=== PATIENT | male | born 1990 | race Caucasian/White ===

== ENCOUNTER 2018-10-25 11:51 | Emergency (ER) | payer SELFPAY ==
[2018-10-25 12:16] VITALS: BP 126/85; PULSE 69; RESP 18; BMI 29.0
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
[2018-10-25 14:09] VITALS: TEMP 97.8; O2SAT 98
== END 2018-10-25 14:09 | disposition home or self-care (01) ==
LOC: H.ER 11:51
DX: M54.5 Low back pain (principal); G89.29 Other chronic pain
CPT/HCPCS: 96372; 99282; J1885

== ENCOUNTER 2018-10-25 14:51 | Inpatient (IN) | payer OTHER, MEDICAID ==
[2018-10-25 14:51] VITALS: BMI 29.0
[2018-10-25 17:09] LABS: BASO % 0.4 % (0.0-2.0); EOS # 0.2 K/uL (0.0-0.7); EOS % 2.1 % (0.0-4.0); HEMOGLOBIN 13.2 g/dL (12.0-18.0); LYMPH # 3.3 K/uL (1.0-4.3); LYMPH % 40.6 % (20.0-40.0); MEAN CELL VOLUME 78.7 fl (80.0-94.0); MEAN CORPUSCULAR HEMOGLOBIN 25.2 pg (27.0-31.0); MEAN PLATELET VOLUME 9.9 fl (7.2-11.7); MONO # 0.5 K/uL (0.0-0.8); MONO % 6.7 % (0.0-10.0); NEUT # 4.1 K/uL (1.8-7.0); NEUT % 50.2 % (50.0-75.0); NRBC % 0.3 % (0.0-0.0); RBC 5.22 Mil/uL (4.40-5.90); RED CELL DISTRIBUTION WIDTH 14.2 % (11.5-14.5); WHITE BLOOD COUNT 8.1 K/uL (4.8-10.8)
[2018-10-25 17:23] LABS: ALB/GLOB RATIO 1.3 (1.0-2.1); ALBUMIN 4.6 g/dL (3.5-5.0); ALT/SGPT 43 U/L (21-72); AST/SGOT 47 U/L (17-59); BLOOD UREA NITROGEN 15 mg/dl (9-20); CALCIUM 9.7 mg/dL (8.4-10.2); GFR NON-AFRICAN AMERICAN > 60
--- NOTE | 2018-10-25 17:33 | RAD ---
HISTORY: pre op COMPARISON: None available. TECHNIQUE: Chest PA and lateral FINDINGS: Examination limited by habitus and hypoinflation. LUNGS: No focal consolidation. Please note that chest x-ray has limited sensitivity for the detection of pulmonary masses. PLEURA: No significant pleural effusion identified. No definite pneumothorax . CARDIOVASCULAR: Heart size appears within normal limits. No atherosclerotic calcification present. OSSEOUS STRUCTURES: No acute osseous abnormality identified. VISUALIZED UPPER ABDOMEN: Unremarkable. OTHER FINDINGS: None. IMPRESSION: No focal consolidation.
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
[2018-10-25] MEDS ORDERED: HYDROmorphone 1 mg/ml ISec IVP PRN (23:27)
[2018-10-26 00:42] LABS: PROTHROMBIN TIME 11.5 Seconds (9.8-13.1)
[2018-10-26 00:45] LABS: PARTIAL THROMBOPLASTIN TIME 27.3 Seconds (25.6-37.1)
[2018-10-26] MEDS: Dextrose 5%/0.9% NS 1,000 ML IV SCH ×2 (05:41→18:43)
[2018-10-26 06:15] LABS: SQUAMOUS EPITHIAL < 1 /hpf (0-5); URINE BILIRUBIN NEGATIVE (NEGATIVE); URINE BLOOD NEGATIVE (NEGATIVE); URINE CALCIUM OXALATE CRYSTALS OCC /hpf (<OCC); URINE CLARITY SLIGHTY-CLOUDY (Clear); URINE COLOR YELLOW (YELLOW); URINE GLUCOSE (UA) NEG (NEGATIVE); URINE LEUKOCYTE ESTERASE NEG Leu/uL (Negative); URINE PROTEIN NEGATIVE (NEGATIVE); URINE UROBILINOGEN 0.2-1.0 mg/dL (0.2-1.0)
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
[2018-10-26] MEDS ORDERED: Bacitracin Ointment 30 GM TUBE ONE (07:39)
[2018-10-26] MEDS ORDERED: Absorbable Gelatin Sponge Size 12-7 ONE (07:39)
[2018-10-26] MEDS ORDERED: Lidocaine 2% w Epi 1:100,000 Inj IJ ONE (07:39)
[2018-10-26] MEDS ORDERED: Thrombin Topical 5,000 Int Units Spray Kit ONE (07:39)
--- NOTE | 2018-10-26 07:46 | CP.PCM.CON ---
Past Patient History - Past Medical History & Family History Past Medical History?: Yes - Past Social History Smoking Status: Current Some Days Smoker - CARDIAC Hx Cardiac Disorders: Yes Hx Hypercholesterolemia: Yes - PULMONARY Hx Respiratory Disorders: No - NEUROLOGICAL Hx Neurological Disorder: No - HEENT Hx HEENT Problems: No - RENAL Hx Chronic Kidney Disease: No - ENDOCRINE/METABOLIC Hx Endocrine Disorders: No - HEMATOLOGICAL/ONCOLOGICAL Hx Blood Disorders: No - INTEGUMENTARY Hx Dermatological Problems: No - MUSCULOSKELETAL/RHEUMATOLOGICAL Hx Musculoskeletal Disorders: Yes Hx Back Pain: Yes Hx Falls: No - GASTROINTESTINAL Hx Gastrointestinal Disorders: No - GENITOURINARY/GYNECOLOGICAL Hx Genitourinary Disorders: No - PSYCHIATRIC Hx Psychophysiologic Disorder: No Hx Substance Use: No - SURGICAL HISTORY Hx Surgeries: Yes Other/Comment: right knee surgery - ANESTHESIA Hx Anesthesia: Yes Hx Anesthesia Reactions: No Meds Allergies/Adverse Reactions: Allergies Allergy/AdvReac Type Severity Reaction Status Date / Time eggplant Allergy RASH Uncoded 10/25/18 12:18 red meat Allergy RASH Uncoded 10/25/18 12:18 shrimp Allergy RASH Uncoded 10/25/18 12:18 - Medications Medications: Current Medications Hydromorphone HCl (Dilaudid) 1 mg IVP Q4 PRN PRN Reason: Pain, severe (8-10) Dextrose/Sodium Chloride (Dextrose 5%/0.9% Ns 1000 Ml) 1,000 mls @ 80 mls/hr IV [id number] MOLLY Stop: 10/27/18 00:15 Last Admin: 10/26/18 05:41 Dose: 80 mls/hr Results - Vital Signs Recent Vital Signs: Last Vital Signs Temp 97.8 F 10/26/18 00:02 Pulse 62 10/26/18 00:02 Resp 18 10/26/18 00:02 BP 109/69 10/26/18 00:02 Pulse Ox 97 10/26/18 00:02 - Labs Result Diagrams: 10/25/18 16:58 10/25/18 16:58 Labs: Laboratory Results - last 24 hr 10/25/18 10/25/18 10/25/18 16:07 16:58 16:58 WBC 8.1 RBC 5.22 Hgb 13.2 Hct 41.1 MCV 78.7 L MCH 25.2 L MCHC 32.0 L RDW 14.2 Plt Count 214 MPV 9.9 Neut % (Auto) 50.2 Lymph % (Auto) 40.6 H Coles % (Auto) 6.7 Eos % (Auto) 2.1 Baso % (Auto) 0.4 Neut # (Auto) 4.1 Lymph # (Auto) 3.3 [place] # (Auto) 0.5 Eos # (Auto) 0.2 Baso # (Auto) 0.0 PT INR APTT Sodium 139 Potassium 4.2 Chloride 105 Carbon Dioxide 25 Anion Gap 13 BUN 15 Creatinine 0.8 Est GFR ( Amer) > 60 Est GFR (Non-Af Amer) > 60 POC Glucose (mg/dL) 76 Random Glucose 76 Calcium 9.7 Total Bilirubin 0.3 AST 47 ALT 43 Alkaline Phosphatase 63 Total Protein 8.2 Albumin 4.6 Globulin 3.5 Albumin/Globulin Ratio 1.3 Urine Color Urine Clarity Urine pH Ur Specific [place] Urine Protein Urine Glucose (UA) Urine Ketones Urine Blood Urine Nitrate Urine Bilirubin Urine Urobilinogen Ur Leukocyte Esterase Urine RBC (Auto) Urine Microscopic WBC Ur Squamous Epith Cells Calcium Oxalate Crystal Blood Type Antibody Screen BBK History Checked 10/25/18 10/26/18 10/26/18 16:58 00:25 05:45 WBC RBC Hgb Hct MCV MCH MCHC RDW Plt Count MPV Neut % (Auto) Lymph % (Auto) Col[place] % (Auto) Eos % (Auto) Baso % (Auto) Neut # (Auto) Lymph # (Auto) [place] # (Auto) Eos # (Auto) Baso # (Auto) PT 11.5 INR 1.0 APTT 27.3 Sodium Potassium Chloride Carbon Dioxide Anion Gap BUN Creatinine Est GFR ( Amer) Est GFR (Non-Af Amer) POC Glucose (mg/dL) Random Glucose Calcium Total Bilirubin AST ALT Alkaline Phosphatase Total Protein Albumin Globulin Albumin/Globulin Ratio Urine Color Yellow Urine Clarity Slighty-cloudy Urine pH 6.0 Ur Specific [place] 1.028 Urine Protein Negative Urine Glucose (UA) Neg Urine Ketones Negative Urine Blood Negative Urine Nitrate Negative Urine Bilirubin Negative Urine Urobilinogen 0.2-1.0 Ur Leukocyte Esterase Neg Urine RBC (Auto) 1 Urine Microscopic WBC 1 Ur Squamous Epith Cells < 1 Calcium Oxalate Crystal Occ H Blood Type A POSITIVE Antibody Screen Negative BBK History Checked No verified bt Assessment & Plan - Date & Time Date: 10/26/18 Time: 07:46
[2018-10-26] MEDS ORDERED: Succinylcholine 200 mg/10 ml Inj IV ONE (07:47)
[2018-10-26] MEDS ORDERED: Rocuronium 10 mg/ml (5 ml) ONE (07:47)
[2018-10-26] MEDS ORDERED: Midazolam 2 MG/2 ML VIAL ONE (07:47)
[2018-10-26] MEDS ORDERED: Propofol 10 mg/ml Inj (20 ML) ONE (07:47)
[2018-10-26] MEDS ORDERED: Lidocaine 4% (Laryng-O-Jet) Kit MM ONE (07:48)
[2018-10-26] MEDS ORDERED: Bupivacaine HCl 0.5% PF (30 ml) Inj ONE (08:14)
--- NOTE | 2018-10-26 08:30 | CARD ---
APPROVED REPORT Date of service: 10/26/2018 EKG Measurement Heart [id number] <Conclusion> Sinus bradycardia ST elevation, consider early repolarization, pericarditis, or injury Abnormal ECG
[2018-10-26] MEDS ORDERED: Dexamethasone 4 mg/1 ml ONE (09:43)
[2018-10-26] MEDS ORDERED: Neostigmine 1:1000 (1 mg/ml) Inj ONE (09:53)
[2018-10-26] MEDS ORDERED: Bupivacaine 0.5% Inj(30mL) IJ ONE (10:30)
[2018-10-26] MEDS ORDERED: Morphine 4 MG/ML VIAL IVP PRN (10:32)
[2018-10-26] MEDS ORDERED: HYDROmorphone 0.5 mg/0.5 ml ISec IVP PRN ×2 (10:38→13:15)
--- NOTE | 2018-10-26 10:38 | PCM.SURG1 ---
Surgeon's Initial Post Op Note - Surgeon's Notes Surgeon: Kike Aguilar MD Psychologist Educational: Uri Escobedo PA-C Type of Anesthesia: General Endo Anesthesia Administered By: Tan Cintron MD Pre-Operative Diagnosis: Lumbar spondylosis Operative Findings: see complete operative report Post-Operative Diagnosis: L3-L4 lumbar spondylosis Operation Performed: L3-L4 lumbar laminectomy and annuloplasty Specimen/Specimens Removed: none Estimated Blood Loss: EBL {In ML}: 5 Blood Products Given: N/A Drains Used: No Drains Post-Op Condition: Good Date of Surgery/Procedure: 10/26/18 Time of Surgery/Procedure: 08:41
--- NOTE | 2018-10-26 12:00 | RAD ---
Date of service: 10/26/2018 HISTORY: s/p l3-l4 laminectomy COMPARISON: 10/25/2018 FINDINGS: LUNGS: No active pulmonary disease. Inspiration is shallow. PLEURA: No significant pleural effusion identified, no pneumothorax apparent. CARDIOVASCULAR: No aortic atherosclerotic calcification present. Normal cardiac size. No pulmonary vascular congestion. OSSEOUS STRUCTURES: No significant abnormalities. VISUALIZED UPPER ABDOMEN: Normal. OTHER FINDINGS: None. IMPRESSION: No active disease.
[2018-10-26] MEDS: Lactated Ringer's 1,000 ML IV SCH ×3 (14:10→21:53)
--- NOTE | 2018-10-26 14:58 | RAD ---
PROCEDURE: HISTORY: As above COMPARISON: None TECHNIQUE: Total fluoroscopic time utilized during the procedure: 11.5 seconds ; 6.26 mGy FINDINGS: Submitted images from the current procedure: 3 Please refer to the physician's notes performing the procedure. IMPRESSION: Less than 1 hour fluoroscopic time utilized during performance of the procedure
[2018-10-26] MEDS: Oxycodone/Acetaminophen 5/325 mg Tab PO PRN (21:52)
[2018-10-26] MEDS ORDERED: Docusate-Senna 50 mg-8.6 mg Tab PO SCH (22:00)
[2018-10-27 06:18] LABS: HEMOGLOBIN 12.5 g/dL (12.0-18.0); MEAN CELL VOLUME 78.6 fl (80.0-94.0); MEAN CORPUSCULAR HEMOGLOBIN 25.4 pg (27.0-31.0); MEAN CORPUSCULAR HGB CONC 32.4 g/dL (33.0-37.0); RBC 4.91 Mil/uL (4.40-5.90); RED CELL DISTRIBUTION WIDTH 13.7 % (11.5-14.5); WHITE BLOOD COUNT 9.7 K/uL (4.8-10.8)
[2018-10-27 06:29] LABS: BLOOD UREA NITROGEN 14 mg/dl (9-20); CALCIUM 9.5 mg/dL (8.4-10.2); GFR NON-AFRICAN AMERICAN > 60
[2018-10-27 08:02] VITALS: BP 99/64; RESP 18; TEMP 97.7
[2018-10-27] MEDS: Lactated Ringer's 1,000 ML IV SCH (08:14)
--- NOTE | 2018-10-27 09:59 | OP ---
PROCEDURE DATE: 10/26/2018 PREOPERATIVE DIAGNOSIS: Herniated lumbar disc at L3-L4. POSTOPERATIVE DIAGNOSIS: Herniated lumbar disc at L3-L4. PROCEDURE: Left L3-L4 hemilaminotomy, medial facetectomy, foraminotomy, decompression, and annuloplasty radiofrequency. Fluoroscopy has been used. Microscope has been used. SURGEON: Kike Aguilar MD ELECTRICAL TECH: Uri Escobedo, physician library technical assistant. DESCRIPTION OF PROCEDURE: The patient was brought to the operating room, anesthetized with general endotracheal anesthesia, and placed in a prone position on a Stevie table. Care was taken to protect all pressure points. Back of the lumbar area was thoroughly prepped and draped in a standard sterile manner after marking the skin incision for lumbar laminectomy. After prepping and draping the area, skin has been incised. Bleeding skin has been controlled with bipolar mainspring fabrication supervisor. After using a Bovie mainspring fabrication supervisor, paraspinal muscles have been detached, attachments of spinous process and lamina of L3-L4 on the left side. Gisele retractor has been applied to alter the facet joint of L3-L4. Fluoroscopy has been now confirmed at this level. Under microscopic magnification and illumination, by using a high-speed drill, the lamina of L3-L4, medial part of the L3-L4 had been drilled. Drilling was continued top and bottom of the ligamentum seen. Drilling was also continued on the medial part of the facets until the turn of ligament was seen. Once this had been done, thinned out the lamina, medial part of the facets and ligamentum flavum had been removed and there was foramen disk noted; however, it was found to be hard; hence foraminotomy was performed. After that with the help of fluoroscopy, the radiofrequency needle has been passed and this position has been confirmed with the fluoroscopy and the tip was found to be close to the annulus. At this point, radiofrequency lesioning has been applied doing an annuloplasty. After that, hemostasis was best achieved. Fascia was closed interspinous ligaments and spinous process with 1 Vicryl, subcutaneous with 3-0 Vicryl. Skin has been done with intradermal stitches. The patient tolerated the procedure. After the procedure, mobilized to the recovery room in stabilized condition. Kike Aguilar MD [facility] # [id number]
[2018-10-27 10:01] VITALS: PULSE 74; O2SAT 98
--- NOTE | 2018-10-27 10:02 | CP.PCM.PN ---
Subjective - Date & Time of Evaluation Date of Evaluation: 10/27/18 Time of Evaluation: 08:00 - Subjective Subjective: Patient seen and examined at bedside comfortable. Pain well controlled. Tolerated PT well this AM. Radiating LE pain improved. Denies C P/SOB/fever/dizziness. Objective - Vital Signs/Intake and Output Vital Signs (last 24 hours): Temp Pulse Resp BP Pulse Ox 97.7 F 61 18 99/64 L 96 10/27/18 08:01 10/27/18 08:01 10/27/18 08:01 10/27/18 08:01 10/27/18 08:01 - Medications Medications: Current Medications Acetaminophen (Tylenol 325mg Tab) 650 mg PO Q4 PRN PRN Reason: Fever 101 degrees fahrenheit Cyclobenzaprine HCl (Flexeril) 10 mg PO Q8 PRN PRN Reason: Muscle spasm Hydromorphone HCl (Dilaudid) 1 mg IVP Q4 PRN PRN Reason: Pain, severe (8-10) Lactated Ringer's (Lactated Ringer's) 1,000 mls @ 100 mls/hr IV .Q10H [facility] Last Admin: 10/27/18 08:14 Dose: Not Given Morphine Sulfate (Morphine) 2 mg IVP Q4 PRN PRN Reason: Pain, severe (8-10) Ondansetron HCl (Zofran Inj) 4 mg IVP Q4 PRN PRN Reason: Nausea/Vomiting Oxycodone/Acetaminophen (Percocet 5/325 Mg Tab) 2 tab PO Q4 PRN PRN Reason: Pain, moderate (4-7) Stop: 10/29/18 10:33 Last Admin: 10/26/18 21:52 Dose: 2 tab Senna/Docusate Sodium (Senokot S 50 Mg-8.6 Mg) 2 tab PO HS [facility] Last Admin: 10/26/18 21:49 Dose: 2 tab - Labs Labs: 10/27/18 06:00 10/27/18 06:00 PT 11.5 Seconds (9.8-13.1) 10/26/18 00:25 INR 1.0 10/26/18 00:25 APTT 27.3 Seconds (25.6-37.1) 10/26/18 00:25 - Back Exam Additional comments: Dressings CDI abd binder in place sensation intact SP/DP/TN motor intact EHL/FHL neg clonus neg SLR b/l Assessment and Plan (1) Lumbar spondylosis Assessment & Plan: POD# 1 s/p lumbar L3-4 laminectomy and annuloplasty -pain well controlled -PT/OT -abd binder for comfort -neurosurgically stable for discharge to home -f/u in office in 1 week, call for appt -keep dressings clean and dry -above d/w Dr. Agiular in agreeement Status: Acute
[2018-10-27] MEDS: Oxycodone/Acetaminophen 5/325 mg Tab PO PRN (12:11)
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
== END 2018-10-27 14:36 | disposition home or self-care (01) | DRG 520 ==
LOC: H.ER 14:51 → H.ERHOLD 17:33 → H.MEDSURG1 20:20
PROVIDERS: ADMIT Family Medicine; ATTEND Family Medicine
PROC: 0S5 Lower Joints, Destruction (ICD-10-PCS; principal; 2018-10-26 09:45)
PROC: 01NB3ZZ Release Lumbar Nerve, Percutaneous Approach (ICD-10-PCS; 2018-10-26 09:45)
DX: M47.816 Spondylosis without myelopathy or radiculopathy, lumbar region (principal); E78.00 Pure hypercholesterolemia, unspecified; F17.200 Nicotine dependence, unspecified, uncomplicated; M51.26 Other intervertebral disc displacement, lumbar region; Z91.013 Allergy to seafood; Z91.018 Allergy to other foods